=== PATIENT | female | born 1980 | race African-American/Black ===

== ENCOUNTER 2020-03-21 10:50 | Emergency (ER) | payer OTHER ==
[2020-03-21] MEDS ORDERED: SODIUM CHLORIDE 1,000 ML IV STA (10:57)
--- NOTE | 2020-03-21 10:58 | PDOC ---
Rapid Medical Evaluation Time Seen by Provider: 03/21/20 10:54 Medical Evaluation: 03/21/20 10:54 Pt presents for evaluation of elevated blood sugars at home. She is a NIDDM, took her medications this morning. She reports her sugars were over 300 this morning. Admits to dizziness and lightheadedness. Exam: No gross neuro deficits, ambulatory Orders: POC glucose, labs, fluids, ekg Pt to proceed to the ER for further evaluation Discharge Disposition - Diagnosis Elevated blood sugar - Referrals - Patient Instructions - Post Discharge Activity
[2020-03-21 11:06] VITALS: TEMP 99.3; BMI 29.1
--- NOTE | 2020-03-21 11:17 | PDOC ---
Attending Attestation - Resident Resident Name: Manuel Franks - HPI HPI: 03/30/20 08:15 Pt presents to the ED complaining of generalized weakness and elevated blood sugar after drinking a sweetened chocolate drink. Denies other complaints. - Physicial Exam PE: 03/30/20 08:23 Agree with resident exam. Patient is alert and oriented and in no acute distress. Cv: rrr no m/r/g pulm: cta b/l abdomen: soft, non tender, non distended, without guarding or rebound. - Medical Decision Making 03/30/20 08:24 pt presents to the ED complaining of generalized malaise. Labs checked to rule out electrolyte or glucose disturbance. patient feels improved. Will discharge home. Discharge - Discharge Information Problems reviewed: Yes Clinical Impression/Diagnosis: Elevated blood sugar Condition: Stable Disposition: HOME - Additional Discharge Information Prescriptions: Cephalexin Monohydrate [Keflex -] 500 mg PO BID #14 capsule - Follow up/Referral Referrals: Cristobal Soto FNP [Primary Care Provider] - - Patient Discharge Instructions Patient Printed Discharge Instructions: DI for Urinary Tract Infection (UTI) Additional Instructions: You were seen in the emergency department for the evaluation of your generalized weakness. Your labs were positive for a urinary tract infection. Please follow up with the primary medical doctor within 1 week for follow up care and discharge. Please return to the emergency department if you have worsening symptoms or new concerning symptoms. Thank you. - Post Discharge Activity Work/Back to School Note: Back to Work
[2020-03-21 11:56] LABS: EOS % 1.8 % (0-4.5); HEMATOCRIT 41.1 % (32.4-45.2); LYMPH % 29.9 % (8-40); MCH 33.6 pg (25.7-33.7); MEAN CELL VOLUME 98.9 fl (80-96); MEAN PLT VOLUME 7.4 fl (7.5-11.1); MONO % 6.3 % (3.8-10.2); PLATELET COUNT 309 K/MM3 (134-434); RBC 4.16 M/mm3 (3.60-5.2); RDW 12.9 % (11.6-15.6); WHITE BLOOD COUNT 4.8 K/mm3 (4.0-10.0)
[2020-03-21 12:17] LABS: ALBUMIN 3.9 g/dl (3.4-5.0); BILIRUBIN,TOTAL 0.7 mg/dL (0.2-1); BLOOD UREA NITROGEN 10.8 mg/dL (7-18); CALCIUM 9.4 mg/dL (8.5-10.1); POTASSIUM 4.1 mmol/L (3.5-5.1); TOT PROT 7.6 g/dl (6.4-8.2)
[2020-03-21 13:08] LABS: HCG,QUALITATIVE URINE NEGATIVE
[2020-03-21 13:09] LABS: URINE APPEARANCE CLEAR; URINE BILIRUBIN NEGATIVE (NEGATIVE); URINE COLOR YELLOW; URINE GLUCOSE (UA) TRACE (NEGATIVE); URINE KETONE TRACE (NEGATIVE); URINE PROTEIN NEGATIVE (NEGATIVE)
[2020-03-21 13:10] LABS: EPI CELLS 15.8 /uL (0-25.1); HYALINE CASTS 2.05 /uL (0-3.1); URINE BACTERIA 8173.7 /uL (0-1359); URINE LEUK ESTERASE TRACE (NEGATIVE); URINE NITRITE NEGATIVE (NEGATIVE); URINE RBC 8.7 /uL (0-23.9); URINE WBC 23.6 /uL (0-25.8)
[2020-03-21 13:14] VITALS: BP 110/71; PULSE 72
--- NOTE | 2020-03-21 13:23 | PDOC ---
History of Present Illness - General Chief Complaint: Weakness Stated Complaint: Blood Sugar Problem Time Seen by Provider: 03/21/20 10:54 History Source: Patient Exam Limitations: No Limitations - History of Present Illness Initial Comments: 03/21/20 13:22 39 yo F with a hx of DM (on metformin) presents to the emergency department with elevated BG and generalized weakness. Per the patient, she states she felt generalized weakness yesterday with BG in the 150s. This morning, she tested her BG at 9am which was 150. She ate fish and bread with a chocolate tea (sweetened) and rechecked her sugar 30-60 minutes later noting it to be in the 300s. The patient denies having recent sick contacts or exposure to those with confirmed or suspected COVID-19. The patient denies the following: fevers, chills, SOB, chest pain, abdominal pain, dysuria, increased urinary frequency, and diarrhea. Past History - Medical History Allergies/Adverse Reactions: Allergies Allergy/AdvReac Type Severity Reaction Status Date / Time No Known Allergies Allergy Verified 03/21/20 10:56 Home Medications: Ambulatory Orders Atorvastatin Calcium [Lipitor] 20 mg PO HS 03/21/20 Cephalexin Monohydrate [Keflex -] 500 mg PO BID #14 capsule 03/21/20 Glipizide [Glucotrol -] 5 mg PO DAILY 03/21/20 Metformin HCl [Glucophage] 1,000 mg PO BID 03/21/20 COPD: No Diabetes: Yes (2011) - Psycho-Social/Smoking History Smoking History: Never smoked Information on smoking cessation initiated: No - Substance Abuse Hx (Audit-C & DAST Scrn) In the last yr the pt used illegal drug/Rx for NonMed reason: No Score: Yes response is considered Positive: 0 Screen Result (Positive result requires Nsg. DAST-10): Negative Review of Systems - Review of Systems Able to Perform ROS?: Yes Is the patient limited Malay proficient: No Constitutional: Yes: Weakness. No: Chills, Diaphoresis, Fever HEENTM: No: Eye Pain, Ear Pain, Nose Pain, Throat Pain Respiratory: No: Cough, Shortness of Breath Cardiac (ROS): No: Chest Pain, Lightheadedness ABD/GI: No: Constipated, Diarrhea, Nausea, Rectal Bleeding, Vomiting, Tarry Stools : No: Dysuria, Hematuria Musculoskeletal: No: Back Pain, Joint Pain, Neck Pain Integumentary: No: Bruising, Rash Neurological: No: Headache Psychiatric: No: Change in Appetite Hematologic/Lymphatic: No: Anemia *Physical Exam - Vital Signs Last Vital Signs Temp Pulse Resp BP Pulse Ox 99.3 F 72 14 110/71 98 03/21/20 10:58 03/21/20 13:13 03/21/20 13:13 03/21/20 13:13 03/21/20 13:13 - Physical Exam General Appearance: Yes: Nourished, Appropriately Dressed. No: Apparent Distres s, Intoxicated HEENT: positive: EOMI, MAXIMO, Normal Voice, Symmetrical, Pharynx Normal, Hearing Grossly Normal. negative: Pale Conjunctivae, Scleral Icterus (R), Scleral Icter us (L), Muffled/Hoarse voice, Pharyngeal Erythema, Tonsillar Exudate, Tonsillar Erythema, Nasal Congestion, Rhinorrhea, Sinus Tenderness, Excessive drooling Neck: positive: Trachea midline, Supple. negative: Tender, Lymphadenopathy (R), Lymphadenopathy (L), Tender lateral, Tender midline Respiratory/Chest: positive: Lungs Clear, Normal Breath Sounds. negative: Chest Tender, Respiratory Distress, Accessory Muscle Use, Crackles, Rales, Rhonchi, S tridor, Wheezing Cardiovascular: positive: Regular Rhythm, Regular Rate, S1, S2. negative: Systolic Murmur Gastrointestinal/Abdominal: positive: Normal Bowel Sounds, Flat, Soft. negative: Tender, Distended, Guarding, Rebound Lymphatic: negative: Adenopathy Musculoskeletal: positive: Normal Inspection. negative: CVA Tenderness, Vertebral Tenderness Extremity: positive: Normal Capillary Refill, Normal Inspection, Normal Range of Motion. negative: Tender, Swelling, Calf Tenderness Integumentary: positive: Normal Color, Dry, Warm. negative: Swelling, Ecchymosis Neurologic: positive: Alert, Normal Mood/Affect ED Treatment Course - LABORATORY CBC & Chemistry Diagram: 03/21/20 11:40 03/21/20 11:40 - ADDITIONAL ORDERS Additional order review: Laboratory Results 03/21/20 03/21/20 03/21/20 13:06 11:40 11:40 Sodium 139 Potassium 4.1 Chloride 104 Carbon Dioxide 27 Anion Gap 8 BUN 10.8 Creatinine 1.0 Est GFR (CKD-EPI)AfAm 82.19 Est GFR (CKD-EPI)NonAf 70.91 POC Glucometer 167 Random Glucose 238 H Calcium 9.4 Total Bilirubin 0.7 AST 11 L ALT 20 Alkaline Phosphatase 80 Total Protein 7.6 Albumin 3.9 Urine Color Yellow Urine Appearance Clear Urine pH 7.0 Ur Specific Garrison 1.020 Urine Protein Negative Urine Glucose (UA) Trace H Urine Ketones Trace H Urine Blood Negative Urine Nitrite Negative Urine Bilirubin Negative Urine Urobilinogen 1.0 Ur Leukocyte Esterase Trace Urine WBC (Auto) 23.6 Urine RBC (Auto) 8.7 Urine Casts (Auto) 2.05 U Epithel Cells (Auto) 15.8 Urine Bacteria (Auto) 8173.7 Urine HCG, Qual Negative 03/21/20 11:28 Sodium Potassium Chloride Carbon Dioxide Anion Gap BUN Creatinine Est GFR (CKD-EPI)AfAm Est GFR (CKD-EPI)NonAf POC Glucometer 225 Random Glucose Calcium Total Bilirubin AST ALT Alkaline Phosphatase Total Protein Albumin Urine Color Urine Appearance Urine pH Ur Specific Garrison Urine Protein Urine Glucose (UA) Urine Ketones Urine Blood Urine Nitrite Urine Bilirubin Urine Urobilinogen Ur Leukocyte Esterase Urine WBC (Auto) Urine RBC (Auto) Urine Casts (Auto) U Epithel Cells (Auto) Urine Bacteria (Auto) Urine HCG, Qual 03/21/20 03/21/20 03/21/20 13:06 11:40 11:28 RBC 4.16 MCV 98.9 H MCHC 34.0 RDW 12.9 MPV 7.4 L Neutrophils % 61.0 Lymphocytes % 29.9 Monocytes % 6.3 Eosinophils % 1.8 Basophils % 1.0 POC Glucometer 167 225 - Medications Given in the ED: ED Medications Discontinued Medications Generic Name Dose Route Start Last Admin Trade Name Freq PRN Reason Stop Dose Admin Sodium Chloride 1,000 mls @ 1,000 mls/hr 03/21/20 10:57 03/21/20 11:46 Normal Saline - IV 03/21/20 11:56 1,000 mls/hr ASDIR STA Administration Medical Decision Making - Medical Decision Making 39 yo F with a hx of DM (on metformin) presents to the emergency department with elevated BG and generalized weakness. Per the patient, she states she felt generalized weakness yesterday with BG in the 150s. Initial vitals: Initial Vital Signs Temp Pulse Resp BP Pulse Ox 99.3 F 82 18 111/67 98 06/28/20 10:58 03/21/20 10:58 03/21/20 10:58 03/21/20 10:58 03/21/20 10:58 Work up: patient presents to the emergency department with generalized weakness with BG elevated today. The patient denies specific systemic complaints ddx: hyperglycemia vs hypoglycemia vs infectious etiology (pNA vs UTI) vs poc glucose 225. Laboratory Tests 03/21/20 03/21/20 03/21/20 11:28 11:40 11:40 WBC 4.8 RBC 4.16 Hgb 14.0 Hct 41.1 MCV 98.9 H MCH 33.6 MCHC 34.0 RDW 12.9 Plt Count 309 MPV 7.4 L Absolute Neuts (auto) 3.0 Neutrophils % 61.0 Lymphocytes % 29.9 Monocytes % 6.3 Eosinophils % 1.8 Basophils % 1.0 Nucleated RBC % 0 Sodium Potassium Chloride Carbon Dioxide Anion Gap BUN Creatinine Est GFR (CKD-EPI)AfAm Est GFR (CKD-EPI)NonAf POC Glucometer 225 Random Glucose Calcium Total Bilirubin AST ALT Alkaline Phosphatase Total Protein Albumin Urine Color Yellow Urine Appearance Clear Urine pH 7.0 Ur Specific Garrison 1.020 Urine Protein Negative Urine Glucose (UA) Trace H Urine Ketones Trace H Urine Blood Negative Urine Nitrite Negative Urine Bilirubin Negative Urine Urobilinogen 1.0 Ur Leukocyte Esterase Trace Urine WBC (Auto) 23.6 Urine RBC (Auto) 8.7 Urine Casts (Auto) 2.05 U Epithel Cells (Auto) 15.8 Urine Bacteria (Auto) 8173.7 Urine HCG, Qual Negative 03/21/20 03/21/20 11:40 13:06 WBC RBC Hgb Hct MCV MCH MCHC RDW Plt Count MPV Absolute Neuts (auto) Neutrophils % Lymphocytes % Monocytes % Eosinophils % Basophils % Nucleated RBC % Sodium 139 Potassium 4.1 Chloride 104 Carbon Dioxide 27 Anion Gap 8 BUN 10.8 Creatinine 1.0 Est GFR (CKD-EPI)AfAm 82.19 Est GFR (CKD-EPI)NonAf 70.91 POC Glucometer 167 Random Glucose 238 H Calcium 9.4 Total Bilirubin 0.7 AST 11 L ALT 20 Alkaline Phosphatase 80 Total Protein 7.6 Albumin 3.9 Urine Color Urine Appearance Urine pH Ur Specific Garrison Urine Protein Urine Glucose (UA) Urine Ketones Urine Blood Urine Nitrite Urine Bilirubin Urine Urobilinogen Ur Leukocyte Esterase Urine WBC (Auto) Urine RBC (Auto) Urine Casts (Auto) U Epithel Cells (Auto) Urine Bacteria (Auto) Urine HCG, Qual patient noted to have a UTI Patient denies nausea and vomiting and able to tolerate PO at the bedside. the patient was told of the infection. she was given abx in the department and given a prescription with return precautions negative. patient was re-assessed and does not have tenderness on exam with glucose of 167. Patient to be discharged. EKG: NSR without ST elevations or depressions. Discharge - Discharge Information Problems reviewed: Yes Clinical Impression/Diagnosis: Elevated blood sugar Condition: Stable Disposition: HOME - Admission No - Additional Discharge Information Prescriptions: Cephalexin Monohydrate [Keflex -] 500 mg PO BID #14 capsule - Follow up/Referral Referrals: Cristobal Soto FNP [Primary Care Provider] - - Patient Discharge Instructions Patient Printed Discharge Instructions: DI for Urinary Tract Infection (UTI) Additional Instructions: You were seen in the emergency department for the evaluation of your generalized weakness. Your labs were positive for a urinary tract infection. Please follow up with the primary medical doctor within 1 week for follow up care and discharge. Please return to the emergency department if you have worsening symptoms or new concerning symptoms. Thank you. - Post Discharge Activity Work/Back to School Note: Back to Work
[2020-03-21] MEDS ORDERED: CEFTRIAXONE 1,000 MG in DEXTROSE 5%-WATER - 50 ML IVPB ONE (13:24)
[2020-03-21] MEDS ORDERED: CEFTRIAXONE 1 GM/50 ML BAG ONE (13:54)
--- NOTE | 2020-03-22 09:22 | EKG ---
Test Reason : Blood Pressure : / mmHG Vent. Rate : 075 BPM Atrial Rate : 075 BPM P-R Int : 144 ms QRS Dur : 090 ms QT Int : 364 ms P-R-T Axes : 047 036 028 degrees QTc Int : 406 ms NORMAL SINUS RHYTHM NO PREVIOUS ECGS AVAILABLE Confirmed by LETY ALANIS MD ([id number]) on 03/22/2020 9:21:57 AM Referred By: Confirmed By:LETY ALANIS MD
== END 2020-03-21 14:57 | disposition home or self-care (01) ==
LOC: JER 10:50
PROC: 3E03329 Introduction of Other Anti-infective into Peripheral Vein, Percutaneous Approach (ICD-10-PCS; principal; 2020-03-21)
PROC: 3E0337Z Introduction of Electrolytic and Water Balance Substance into Peripheral Vein, Percutaneous Approach (ICD-10-PCS; 2020-03-21)
DX: R73.9 Hyperglycemia, unspecified (principal)
CPT/HCPCS: 36415; 80053; 81003; 82962; 84703; 85025; 87086; 87186; 93005; 93010; 96361; 96365; 99285-25

== ENCOUNTER 2021-04-11 17:32 | Emergency (ER) | payer OTHER ==
[2021-04-11 17:56] VITALS: TEMP 99.3; BMI 30.7
[2021-04-11] MEDS ORDERED: SODIUM CHLORIDE 1,000 ML IV STA (19:00)
[2021-04-11] MEDS ORDERED: METOCLOPRAMIDE HCL INJECTION 10 MG/2 ML VIAL IVPUSH ONE (19:00)
[2021-04-11] MEDS ORDERED: ACETAMINOPHEN 1000 MG/100 ML VIAL (NON FORMULARY) IVPB ONE (19:00)
[2021-04-11] MEDS ORDERED: METOCLOPRAMIDE HCL INJECTION 10 MG/2 ML VIAL ONE (19:28)
[2021-04-11] MEDS ORDERED: ACETAMINOPHEN INJECTION 100 ML IVPB ONE (19:28)
[2021-04-11 19:37] LABS: BASO % 1.1 % (0-2.0); EOS % 3.3 % (0-4.5); HEMATOCRIT 37.7 % (32.4-45.2); HEMOGLOBIN 12.8 GM/dL (10.7-15.3); LYMPH % 27.1 % (8-40); MCH 33.2 pg (25.7-33.7); MCHC 34.1 g/dl (32.0-36.0); MEAN CELL VOLUME 97.4 fl (80-96); NEUT % 62.5 % (42.8-82.8); PLATELET COUNT 286 10^3/uL (134-434); RBC 3.86 M/mm3 (3.60-5.2); RDW 12.6 % (11.6-15.6); WHITE BLOOD COUNT 5.9 K/mm3 (4.0-10.0)
[2021-04-11 19:49] LABS: CHLORIDE 104 mmol/L (98-107); SODIUM 138 mmol/L (136-145)
[2021-04-11 19:51] LABS: CALCIUM 8.8 mg/dL (8.5-10.1)
[2021-04-11 19:52] LABS: ALBUMIN 3.5 g/dl (3.4-5.0); ANION GAP 7 MMOL/L (8-16); BLOOD UREA NITROGEN 9.9 mg/dL (7-18); CO2 26 mmol/L (21-32); GLUCOSE,RANDOM 234 mg/dL (74-106)
[2021-04-11 19:55] LABS: CREATININE 0.8 mg/dL (0.55-1.3); SGOT/AST 11 U/L (15-37); SGPT/ALT 23 U/L (13-61)
[2021-04-11 19:56] LABS: BILIRUBIN,TOTAL 0.3 mg/dL (0.2-1); TOT PROT 7.1 g/dl (6.4-8.2)
[2021-04-11 19:58] LABS: ALK PHOS 74 U/L (45-117)
[2021-04-11 21:51] VITALS: BP 123/69; PULSE 68
== END 2021-04-11 21:40 | disposition home or self-care (01) ==
LOC: JER 17:32
PROC: 3E0333Z Introduction of Anti-inflammatory into Peripheral Vein, Percutaneous Approach (ICD-10-PCS; principal; 2021-04-11)
PROC: 3E033GC Introduction of Other Therapeutic Substance into Peripheral Vein, Percutaneous Approach (ICD-10-PCS; 2021-04-11)
PROC: 3E033GC Introduction of Other Therapeutic Substance into Peripheral Vein, Percutaneous Approach (ICD-10-PCS; 2021-04-11)
PROC: 3E0337Z Introduction of Electrolytic and Water Balance Substance into Peripheral Vein, Percutaneous Approach (ICD-10-PCS; 2021-04-11)
DX: R42 Dizziness and giddiness (principal)
CPT/HCPCS: 36415; 71046-TC-FY; 80053; 82550; 83735; 84484; 85025; 93005; 93010; 99285-25; J0131

== ENCOUNTER 2021-07-29 10:04 | Emergency (ER) | payer OTHER ==
[2021-07-29 10:31] VITALS: BP 116/73; PULSE 86; TEMP 98.6; BMI 28.8
[2021-07-29] MEDS ORDERED: HURRICAINE SP EXT TUBE 1 EA EACH TP ONE (10:39)
[2021-07-29] MEDS ORDERED: LIDOCAINE VISCOUS 2% ORAL/TOP 15 ML UNIT-DOSE CUP ONE (10:43)
== END 2021-07-29 11:16 | disposition home or self-care (01) ==
LOC: JER 10:04
DX: T17.228A Food in pharynx causing other injury, initial encounter (principal)
CPT/HCPCS: 99283-25

== ENCOUNTER 2021-09-24 16:51 | Emergency (ER) | payer OTHER ==
[2021-09-24 17:10] VITALS: BP 119/78; PULSE 92; TEMP 98.9; BMI 28.8
== END 2021-09-24 18:15 | disposition home or self-care (01) ==
LOC: JERFT 16:51 → JER 16:51 → JERFT 18:15
DX: T59.891A Toxic effect of other specified gases, fumes and vapors, accidental (unintentional), initial encounter (principal); M54.6 Pain in thoracic spine
CPT/HCPCS: 99281-25

== ENCOUNTER 2021-11-04 21:48 | Emergency (ER) | payer OTHER ==
[2021-11-04 21:52] VITALS: BP 118/77; PULSE 91; TEMP 97; BMI 29.5
[2021-11-04 23:41] LABS: VENOUS BASE EXCESS 0.4 mmol/L (-2-2); VENOUS O2 SATURATION 65.9 % (70-80); VENOUS PCO2 47.7 mmHg (38-52); VENOUS PH 7.36 (7.310-7.410)
[2021-11-04 23:43] LABS: BASO % 0.9 % (0-2.0); EOS % 3.2 % (0-4.5); HEMATOCRIT 37.4 % (32.4-45.2); LYMPH % 27.3 % (8-40); MCH 33.8 pg (25.7-33.7); MCHC 34.7 g/dl (32.0-36.0); MEAN CELL VOLUME 97.5 fl (80-96); MONO % 5.2 % (3.8-10.2); NEUT % 63.4 % (42.8-82.8); PLATELET COUNT 306 10^3/uL (134-434); RBC 3.84 M/mm3 (3.60-5.2); RDW 12.4 % (11.6-15.6); WHITE BLOOD COUNT 6.2 K/mm3 (4.0-10.0)
[2021-11-04 23:47] LABS: EPI CELLS 7 /uL (0-25.1); HYALINE CASTS 1 /uL (0-3.1); URINE APPEARANCE CLEAR; URINE BACTERIA 409 /uL (0-1359); URINE BILIRUBIN NEGATIVE (NEGATIVE); URINE COLOR YELLOW; URINE GLUCOSE (UA) 3+ (NEGATIVE); URINE KETONE TRACE (NEGATIVE); URINE LEUK ESTERASE NEGATIVE (NEGATIVE); URINE NITRITE NEGATIVE (NEGATIVE); URINE PROTEIN NEGATIVE (NEGATIVE); URINE RBC 5 /uL (0-23.9); URINE WBC 7 /uL (0-25.8)
[2021-11-05 00:04] LABS: CALCIUM 9.1 mg/dL (8.5-10.1)
[2021-11-05 00:05] LABS: ALBUMIN 3.8 g/dl (3.4-5.0); BLOOD UREA NITROGEN 13.8 mg/dL (7-18)
[2021-11-05 00:07] LABS: CREATININE 0.9 mg/dL (0.55-1.3)
[2021-11-05 00:09] LABS: BILIRUBIN,TOTAL 0.4 mg/dL (0.2-1); TOT PROT 7.4 g/dl (6.4-8.2)
[2021-11-05] MEDS ORDERED: SODIUM CHLORIDE 0.9% 500 ML INFUS.BAG IV ONE (00:20)
== END 2021-11-05 01:51 | disposition home or self-care (01) ==
LOC: JER 21:48
DX: R73.9 Hyperglycemia, unspecified (principal)
CPT/HCPCS: 36415; 80053; 81003; 82010; 82803; 82962; 84703; 85025; 87086; 93005; 93010; 99284-25

== ENCOUNTER 2022-12-20 10:52 | Emergency (ER) | payer OTHER ==
[2022-12-20 11:13] VITALS: RESP 18; TEMP 98.4; BMI 27.4
[2022-12-20] MEDS ORDERED: MAG HYDROX/AL HYDROX/SIMETH 30 ML UNIT-DOSE CUP PO ONE (12:02)
[2022-12-20] MEDS ORDERED: SODIUM CHLORIDE 0.9% 500 ML INFUS.BAG IV ONE (12:03)
[2022-12-20] MEDS ORDERED: ACETAMINOPHEN 500 MG TABLET (FP) PO ONE (12:03)
[2022-12-20] MEDS ORDERED: MAG HYDROX/AL HYDROX/SIMETH 30 ML UNIT-DOSE CUP ONE (12:06)
[2022-12-20] MEDS ORDERED: ACETAMINOPHEN 500 MG TABLET (FP) ONE (12:07)
[2022-12-20 12:36] LABS: VENOUS BASE EXCESS -1.8 mmol/L (-2-2); VENOUS O2 SATURATION 32.5 % (70-80); VENOUS PCO2 52.6 mmHg (38-52); VENOUS PH 7.303 (7.310-7.410)
[2022-12-20 12:37] LABS: BASO % 0.4 % (0-2.0); EOS % 1.7 % (0-4.5); HEMATOCRIT 43.1 % (32.4-45.2); LYMPH % 25.4 % (8-40); MCHC 34.8 g/dl (32.0-36.0); MEAN CELL VOLUME 97.7 fl (80-96); MEAN PLT VOLUME 6.8 fl (7.5-11.1); NEUT % 68.5 % (42.8-82.8); PLATELET COUNT 305 10^3/uL (134-434); RBC 4.41 M/mm3 (3.60-5.2); RDW 12.3 % (11.6-15.6)
[2022-12-20 12:38] LABS: URINE APPEARANCE CLEAR; URINE BILIRUBIN NEGATIVE (NEGATIVE); URINE COLOR YELLOW; URINE GLUCOSE (UA) 3+ (NEGATIVE); URINE KETONE NEGATIVE (NEGATIVE); URINE LEUK ESTERASE NEGATIVE (NEGATIVE); URINE NITRITE NEGATIVE (NEGATIVE); URINE PROTEIN NEGATIVE (NEGATIVE); URINE UROBILINOGEN 0.2 mg/dL (0.2-1.0)
[2022-12-20 13:00] LABS: ALBUMIN 3.9 g/dl (3.4-5.0); BLOOD UREA NITROGEN 12.9 mg/dL (7-18); CALCIUM 9.5 mg/dL (8.5-10.1)
[2022-12-20 13:03] LABS: CREATININE 0.8 mg/dL (0.55-1.3)
[2022-12-20 13:05] LABS: BILIRUBIN,TOTAL 0.8 mg/dL (0.2-1); TOT PROT 7.9 g/dl (6.4-8.2)
[2022-12-20 16:50] VITALS: BP 118/70; PULSE 80
== END 2022-12-20 16:52 | disposition home or self-care (01) ==
LOC: JER 10:52
DX: E11.65 Type 2 diabetes mellitus with hyperglycemia (principal); K59.00 Constipation, unspecified; Z79.84 Long term (current) use of oral hypoglycemic drugs
CPT/HCPCS: 36415; 71046-TC-FY; 74018-TC-FY; 76705-TC; 80053; 81003; 82803; 83605; 83690; 84484; 84703; 85025; 93005; 93010; 99285-25

== ENCOUNTER 2023-07-16 16:36 | Emergency (ER) | payer OTHER ==
[2023-07-16 16:54] VITALS: RESP 16; BMI 30.6
[2023-07-16] MEDS ORDERED: MAG HYDROX/AL HYDROX/SIMETH 30 ML UNIT-DOSE CUP PO ONE (19:48)
[2023-07-16] MEDS ORDERED: FAMOTIDINE 20 MG TABLET PO ONE (19:48)
[2023-07-16] MEDS ORDERED: SUCRALFATE 1 GM TABLET (FP) PO ONE (19:48)
[2023-07-16] MEDS ORDERED: FAMOTIDINE 20 MG/50 ML IVPB 20 MG/50 ML MG IVPB ONE ×2 (19:51→20:01)
[2023-07-16] MEDS ORDERED: SUCRALFATE 1 GM TABLET (FP) ONE (20:00)
[2023-07-16] MEDS ORDERED: MAG HYDROX/AL HYDROX/SIMETH 30 ML UNIT-DOSE CUP ONE (20:00)
[2023-07-16 20:31] LABS: BASO % 0.6 % (0-2.0); EOS % 3.4 % (0-4.5); HEMATOCRIT 42.9 % (32.4-45.2); HEMOGLOBIN 14.8 GM/dL (10.7-15.3); LYMPH % 31.4 % (8-40); MCH 33.8 pg (25.7-33.7); MCHC 34.6 g/dl (32.0-36.0); MEAN CELL VOLUME 97.7 fl (80-96); MEAN PLT VOLUME 6.8 fl (7.5-11.1); MONO % 5.6 % (3.8-10.2); PLATELET COUNT 328 10^3/uL (134-434); RBC 4.39 M/mm3 (3.60-5.2); RDW 12.7 % (11.6-15.6); WHITE BLOOD COUNT 6.9 K/mm3 (4.0-10.0)
[2023-07-16 20:43] LABS: POTASSIUM 4.3 mmol/L (3.5-5.1)
[2023-07-16 20:46] LABS: CALCIUM 9.2 mg/dL (8.5-10.1)
[2023-07-16 20:47] LABS: ALBUMIN 3.7 g/dl (3.4-5.0)
[2023-07-16 20:50] LABS: BLOOD UREA NITROGEN 12.6 mg/dL (7-18); CREATININE 0.8 mg/dL (0.55-1.3)
[2023-07-16 20:51] LABS: BILIRUBIN,TOTAL 0.6 mg/dL (0.2-1); TOT PROT 7.6 g/dl (6.4-8.2)
[2023-07-16 21:28] VITALS: BP 100/63; PULSE 69; TEMP 97.8
== END 2023-07-16 21:53 | disposition home or self-care (01) ==
LOC: JER 16:36
PROC: 3E033GC Introduction of Other Therapeutic Substance into Peripheral Vein, Percutaneous Approach (ICD-10-PCS; principal; 2023-07-16)
DX: K21.9 Gastro-esophageal reflux disease without esophagitis (principal); R10.13 Epigastric pain; R07.9 Chest pain, unspecified; R42 Dizziness and giddiness
CPT/HCPCS: 36415; 71046-TC-FY; 80053; 83690; 84484; 84703; 85025; 93005; 93010; 99285-25

== ENCOUNTER 2025-03-29 15:59 | Emergency (ER) | payer OTHER ==
[2025-03-29 16:16] VITALS: BP 125/78; PULSE 82; RESP 16; TEMP 98.2; BMI 28.2
[2025-03-29] MEDS ORDERED: ACETAMINOPHEN 500 MG TABLET (FP) ONE (16:59)
[2025-03-29] MEDS: ACETAMINOPHEN 500 MG TABLET (FP) PO ONE (17:05)
[2025-03-29] MEDS ORDERED: DIPHTH,PERTUSS(ACELL),TET 0.5 ML DISP.SYRIN IM ONE (17:53)
[2025-03-29] MEDS: DIPHTH,PERTUSS(ACELL),TET 0.5 ML DISP.SYRIN IM ONE (17:58)
== END 2025-03-29 18:35 | disposition home or self-care (01) ==
LOC: JERFT 15:59
PROC: 0HQFXZZ Repair Right Hand Skin, External Approach (ICD-10-PCS; principal; 2025-03-29)
PROC: 3E0F7GC Introduction of Other Therapeutic Substance into Respiratory Tract, Via Natural or Artificial Opening (ICD-10-PCS; 2025-03-29)
DX: S61.213A Laceration without foreign body of left middle finger without damage to nail, initial encounter (principal); S61.012A Laceration without foreign body of left thumb without damage to nail, initial encounter; Z23 Encounter for immunization; W26.0XXA Contact with knife, initial encounter; Y93.G1 Activity, food preparation and clean up; Y99.0 Civilian activity done for income or pay
CPT/HCPCS: 90715; 99284-25